=== PATIENT | male | born 1935 | race Caucasian/White ===

== ENCOUNTER 2016-12-07 07:22 | Day surgery (SDC) | payer MEDICARE, OTHER ==
--- NOTE | ~2016-12-07 | EGD ---
EGD REPORT [facility] [address] 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 Estimated blood loss: None. Procedure: Pre-Anesthesia Assessment: - ASA Grade Assessment: IV - A patient with severe systemic disease that is a constant threat to life. After obtaining informed consent, the endoscope was passed under direct vision. Throughout the procedure, the patient's blood pressure, pulse, and oxygen saturations were monitored continuously. The Endoscope was introduced through the mouth, and advanced to the second part of duodenum. The GIF [id number] was introduced through the mouth, and advanced to the second part of duodenum. Findings: Endoscopic Finding : Grade II varices were found in the lower third of the esophagus. Mild portal hypertensive gastropathy was found in the gastric fundus and in the gastric body. The exam of the stomach was otherwise normal. The cardia and gastric fundus were normal on retroflexion. The examined duodenum was endoscopically normal. Endosonographic Finding : Pancreatic parenchymal abnormalities were noted in the pancreatic head, in the genu of the pancreas and in the pancreatic body. These consisted of lobularity. The pancreatic duct had a normal endosonographic appearance in the pancreatic head, in the genu of the pancreas and in the body of the pancreas. An anechoic lesion suggestive of a cyst was identified in the pancreatic tail. The lesion measured 29 mm by 27 mm in maximal cross-sectional diameter. There were many compartments The outer wall of the lesion was thin. It was difficult to discern this from the pancreatic duct. There was no associated mass. There was no internal debris within the fluid-filled cavity. There was no sign of significant endosonographic abnormality in the EGD REPORT [address] [place]. [address] NAME: LARS DANIELS : 37 STATUS : REG [facility] [place] PAT#: [id number] AGE: 81 ADM/REG DATE : 12/07/16 MR#: [id number] REPORT SERV DATE: 12/07/16 DICTATED BY: ELISEO FERRARI DATE: 12/07/16 REPORT STATUS : Draft TRANSCRIBED BY: [facility] DATE: 12/07/16 common bile duct. Endosonographic examination of the portal vein suggested the presence of a thrombus. This thrombus was not occlusive. It was immobile. No lymphadenopathy seen. There was no sign of significant endosonographic abnormality in the examined duodenum. Endosonographic images of the stomach were unremarkable. Impression: - Grade II esophageal varices. - Portal hypertensive gastropathy. - Normal examined duodenum. - Pancreatic parenchymal abnormalities consisting of lobularity were noted in the pancreatic head, in the genu of the pancreas and in the pancreatic body. - The pancreatic duct had a normal endosonographic appearance in the pancreatic head, in the genu of the pancreas and in the body of the pancreas. - A 29 mm by 27 mm cystic lesion was seen in the pancreatic tail. - There was no sign of significant pathology in the common bile duct. - A thrombus was visualized endosonographically in the portal vein. - There was no sign of significant pathology in the examined duodenum. - Endosonographic images of the stomach were unremarkable. Recommendation: - Return to previous diet. - Continue present medications. - Resume Coumadin (warfarin) at prior dose today. - Given age and comorbities would follow for now with MRI every 6 months per referring physician. Procedure Code(s): --- Professional --- 90582, Esophagogastroduodenoscopy, flexible, transoral; with endoscopic ultrasound examination, including the esophagus, stomach, and either the duodenum or a surgically altered stomach where the jejunum is examined distal to the anastomosis Diagnosis Code(s): --- Professional --- I85.00, Esophageal varices without bleeding K76.6, Portal hypertension K31.89, Other diseases of stomach and duodenum K86.9, Disease of pancreas, unspecified K86.2, Cyst of pancreas EGD REPORT [facility] [address] [place]. [address] NAME: LARS DANIELS : 37 STATUS : REG [facility]#: [id number] AGE: 81 ADM/REG DATE : 12/07/16 MR#: [id number] REPORT SERV DATE: 12/07/16 DICTATED BY: ELISEO FERRARI DATE: 12/07/16 REPORT STATUS : Draft TRANSCRIBED BY: [employer] DATE: 12/07/16 I81, Portal vein thrombosis CPT copyright 2013 [employer]. All rights reserved. The codes documented in this report are preliminary and upon porter sample case review may be revised to meet current compliance requirements. ELISEO FERRARI, 12/07/2016 9:21 AM Number of Addenda: 0 Note Initiated On: 12/07/2016 8:55 AM [facility] [place] [address]
[~2016-12-07 07:22] MED LIST: ADVAIR100 INH; ARICEPT10 PO; ASAB PO; ATEN50 PO; B121000P IM; BREO ELLIPTA 21 EACH INH; BREO ELLIPTA INH; BRILINTA90 MG PO; C25 PO; C5 PO; CONSTULOSE PO; COR20 PO; CRESTOR20 MG PO; DEMA20 PO; DHEA25 MG OR; EFFEX75 PO; FISH-EPA1000 MG PO; GLUCOPHAGE1000 MG PO; GLUCOTROL5 PO; HCTZ25B PO; IMDUR60 PO; LEVEMFLXPN SC; LISINOPRIL40 MG PO; LOPID6 PO; MULTIVITAMI1 PO; NITROSPRAY SL; RAZADYNE4 PO; VITAMIN B PO; VITC500 PO; ZANTAC 150 PO
[2016-12-07 08:00] LABS: INTERNATIONAL NORMAL RATI 1.2 UNITS (-); PROTIME (NOT ORD) 15.5 SEC (12.0-14.5)
[2016-12-07 08:06] LABS: ALBUMIN 3.4 G/DL (3.5-5.0); CALCIUM, SERUM 8.2 MG/DL (8.5-10.4); CHLORIDE, SERUM 108 MMOL/L (96-112); CO2 (CARBON DIOXIDE) 24 MMOL/L (24-34); CREATININE 1.44 MG/DL (0.70-1.30); GFR AFRICAN AMERICAN 53 ML/MIN (>=60); GFR NON AFRICAN AMERICAN 46 ML/MIN (>=60); SODIUM, SERUM 140 MMOL/L (135-148); TOTAL BILIRUBIN 0.6 MG/DL (0-1.2); TOTAL PROTEIN 7.4 G/DL (6.0-8.5)
[2016-12-07 08:07] LABS: ALKALINE PHOSPHATASE 105 U/L (45-117); BUN (BLOOD UREA NITROGEN) 18 MG/DL (6-23); DIRECT BILIRUBIN < 0.1 MG/DL (0.0-0.4); GLUCOSE, SERUM 191 MG/DL (60-99); INDIRECT BILIRUBIN(NOT ORDER) 0.5 MG/DL (0.1-0.9); POTASSIUM, SERUM 4.6 MMOL/L (3.5-5.3); SGOT(AST) 16 U/L (5-40); SGPT(ALT) 31 U/L (5-65)
== END 2016-12-07 23:59 | disposition home or self-care (01) ==
LOC: DMU 07:22
PROVIDERS: Anesthesiology; Internal Medicine Gastroenterology
PROC: 0DJ08ZZ Inspection of Upper Intestinal Tract, Via Natural or Artificial Opening Endoscopic (ICD-10-PCS; principal; 2016-12-07 09:30)
DX: I85.00 Esophageal varices without bleeding (principal); K76.6 Portal hypertension; K31.89 Other diseases of stomach and duodenum; K86.9 Disease of pancreas, unspecified; K74.60 Unspecified cirrhosis of liver; I12.9 Hypertensive chronic kidney disease with stage 1 through stage 4 chronic kidney disease, or unspecified chronic kidney disease; E11.22 Type 2 diabetes mellitus with diabetic chronic kidney disease; N18.2 Chronic kidney disease, stage 2 (mild); I81 Portal vein thrombosis; I48.91 Unspecified atrial fibrillation; J44.9 Chronic obstructive pulmonary disease, unspecified; F03.90 Unspecified dementia, unspecified severity, without behavioral disturbance, psychotic disturbance, mood disturbance, and anxiety; F32.9 Major depressive disorder, single episode, unspecified; H91.93 Unspecified hearing loss, bilateral; Z85.05 Personal history of malignant neoplasm of liver; Z88.0 Allergy status to penicillin; Z88.5 Allergy status to narcotic agent; Z79.4 Long term (current) use of insulin; Z79.84 Long term (current) use of oral hypoglycemic drugs; Z79.01 Long term (current) use of anticoagulants; Z79.899 Other long term (current) drug therapy; Z87.891 Personal history of nicotine dependence; Z90.89 Acquired absence of other organs; Z98.890 Other specified postprocedural states
CPT/HCPCS: 80048; 80076; 85610